=== PATIENT | female | born 1940 | race Caucasian/White ===

== ENCOUNTER → 2022-01-09 | Outpatient (CLI) | payer MEDICARE, OTHER ==
[~2022-01-09] MED LIST: CONEST.625 PO; ESTR25VT PV; MULTIVITAMIN; VITAMIN D
[2022-01-12 12:33] LABS: Stool Occult Bld Immuno 1 Negative (NEGATIVE); Stool Occult Bld Immuno 2 Negative (NEGATIVE)
== END | disposition home or self-care (01) ==
LOC: LAB SHORT 14:58
PROVIDERS: Internal Medicine Gastroenterology
DX: Z09 Encounter for follow-up examination after completed treatment for conditions other than malignant neoplasm (principal); Z86.010 Personal history of colon polyps
CPT/HCPCS: 82274

== ENCOUNTER 2024-05-06 09:48 | Emergency (ER) | payer MEDICARE, OTHER ==
[~2024-05-06] VITALS: Ht 162.6 cm; Wt 52.2 kg
[2024-05-06] MEDS ORDERED: Lactated Ringer's 1,000 ML IV ONE (10:40)
[2024-05-06 10:44] LABS: Source, Urine Clean Catch
[2024-05-06 10:46] LABS: Bilirubin, Urine Neg (Neg); Blood, Urine Neg (Neg); Glucose Qualitative, Urine Neg (Neg); Ketones, Urine Neg (Neg); Leukocyte Esterase, Urine 2+ (Neg); Nitrite, Urine Neg (Neg); Protein, Urine Neg (Neg); Specific Gravity, Urine 1.015 (1.003-1.022); Urobilinogen, Urine NORM (Normal)
[2024-05-06] MEDS ORDERED: ELIQUIS2.5 MG (10:48)
[2024-05-06 11:00] LABS: BASOPHILS ABSOLUTE AUTO 0.03 K/mm3 (0.00-0.23); BASOPHILS PERCENT AUTO 1 % (0-2); EOSINOPHILS ABSOLUTE AUTO 0.15 K/mm3 (0.00-0.68); EOSINOPHILS PERCENT AUTO 3 % (0-6); Hematocrit 43.9 % (33.0-51.0); Hemoglobin 14.6 g/dL (11.5-16.0); IMMATURE GRAN ABSOLUTE AUTO 0.01 K/mm3 (0.00-0.10); IMMATURE GRAN PERCENT AUTO 0 % (0-1); LYMPHOCYTES ABSOLUTE AUTO 0.88 K/mm3 (0.84-5.20); LYMPHOCYTES PERCENT AUTO 19 % (21-46); MONOCYTES ABSOLUTE AUTO 0.57 K/mm3 (0.16-1.47); MONOCYTES PERCENT AUTO 12 % (4-13); Mean Corpuscular HGB 29.5 pg (26.0-34.0); Mean Corpuscular HGB Conc 33.3 g/dL (31.5-36.5); Mean Corpuscular Volume 89 fL (80-100); Mean Platelet Volume 10.8 fL (9.1-12.4); NEUTROPHILS ABSOLUTE AUTO 3.12 K/mm3 (1.96-9.15); NEUTROPHILS PERCENT AUTO 66 % (41-73); Platelet Count 243 K/mm3 (150-400); RDW Standard Deviation 42.2 fL (35.1-46.3); Red Blood Cell Count 4.95 M/mm3 (3.80-5.20); White Blood Cell Count 4.76 K/mm3 (4.00-11.30)
[2024-05-06 11:11] LABS: Albumin, Blood 3.7 g/dL (3.4-5.0); Bilirubin, Total 0.5 mg/dL (0.1-1.0); Bun/Creatinine Ratio 25.4 (12.0-20.0); Calcium, Blood 9.6 mg/dL (8.5-10.1); Creatinine, Blood 0.59 mg/dL (0.40-1.00); Globulin, Blood 3.8 g/dL (2.2-4.0); Magnesium, Blood 2.2 mg/dL (1.6-2.4); Potassium, Blood 3.8 mmol/L (3.5-5.5); Total Protein, Blood 7.5 g/dL (6.4-8.2)
[2024-05-06 11:11] LABS: Appearance, Urine Hazy (Clear); Color, Urine Yellow (P-Yellow)
[2024-05-06 11:12] LABS: Bacteria Rare /hpf; Red Blood Cells, Urine 0-2 /hpf (0-2); Squamous Epithelial Cells Mod /hpf (Few)
[2024-05-06 12:00] VITALS: BP 162/69
[2024-05-06 12:00] LABS: CORONAVIRUS COVID-19 AG Negative (NEGATIVE); INFLUENZA A AG Negative (NEGATIVE); INFLUENZA B AG Negative (NEGATIVE)
== END 2024-05-06 12:28 | disposition home or self-care (01) ==
LOC: ER 09:48
PROVIDERS: Student in an Organized Health Care Education/Training Program
DX: R42 Dizziness and giddiness (principal); Z86.79 Personal history of other diseases of the circulatory system; Z79.01 Long term (current) use of anticoagulants; Z79.899 Other long term (current) drug therapy; Z88.5 Allergy status to narcotic agent; Z88.8 Allergy status to other drugs, medicaments and biological substances
CPT/HCPCS: 80053; 81001; 83735; 84484; 85025; 87086; 87428-QW; 93005; 93010; 96360; 99284-25; J7120

== ENCOUNTER → 2025-02-03 | Outpatient (CLI) | payer MEDICARE, OTHER ==
[~2025-02-03] MED LIST changes: +ELIQUIS2.5 MG
== END ==
LOC: LAB 14:12 → LAB SHORT 14:12
DX: D49.0 Neoplasm of unspecified behavior of digestive system (principal)
CPT/HCPCS: 88305; 88312

== ENCOUNTER 2025-02-24 18:10 | Inpatient (IN) | payer MEDICARE, OTHER ==
[~2025-02-24] VITALS: Ht 162.6 cm; Wt 65.8 kg
[~2025-02-24 18:10] MED LIST changes: -ELIQUIS2.5 MG; +ELIQUIS2.5 MG PO
[2025-02-24 18:29] LABS: BASOPHILS ABSOLUTE AUTO 0.04 K/mm3 (0.00-0.23); BASOPHILS PERCENT AUTO 1 % (0-2); EOSINOPHILS ABSOLUTE AUTO 0.25 K/mm3 (0.00-0.68); EOSINOPHILS PERCENT AUTO 4 % (0-6); Hematocrit 41.5 % (33.0-51.0); Hemoglobin 13.7 g/dL (11.5-16.0); IMMATURE GRAN ABSOLUTE AUTO 0.02 K/mm3 (0.00-0.10); IMMATURE GRAN PERCENT AUTO 0 % (0-1); LYMPHOCYTES ABSOLUTE AUTO 2.07 K/mm3 (0.84-5.20); LYMPHOCYTES PERCENT AUTO 31 % (21-46); MONOCYTES ABSOLUTE AUTO 0.82 K/mm3 (0.16-1.47); MONOCYTES PERCENT AUTO 12 % (4-13); Mean Corpuscular HGB Conc 33.0 g/dL (31.5-36.5); Mean Corpuscular Volume 88 fL (80-100); NEUTROPHILS ABSOLUTE AUTO 3.43 K/mm3 (1.96-9.15); NEUTROPHILS PERCENT AUTO 52 % (41-73); NRBC ABSOLUTE 0.00 K/mm3 (0.00-0.02); NRBC Auto 0.0 /100 WBC (0.0-0.2); Platelet Count 301 K/mm3 (150-400); RDW Coefficient Variation 13.3 % (11.7-14.2); RDW Standard Deviation 43.1 fL (35.1-46.3)
[2025-02-24 18:30] LABS: pH Blood Venous 7.46 (7.34-7.37)
[2025-02-24 18:44] LABS: Prothrombin Time Results 10.2 Sec (9.7-11.5)
[2025-02-24 18:52] LABS: Alanine Aminotransfer (ALT/SGP 24.0 U/L (12-78); Albumin, Blood 3.7 g/dL (3.4-5.0); Albumin/Globulin Ratio 1.0 (0.8-1.8); Anion Gap 7.0 mmol/L (3-11); Aspartate Aminotrans (AST/SGOT 22.0 U/L (12-37); Bilirubin, Total 0.5 mg/dL (0.1-1.0); Blood Urea Nitrogen 12.0 mg/dL (8-24); CO2, Blood 29.0 mmol/L (21-32); Calcium, Blood 9.6 mg/dL (8.5-10.1); Chloride, Blood 104.0 mmol/L (98-108); Creatinine, Blood 0.6 mg/dL (0.40-1.00); Globulin, Blood 3.7 g/dL (2.2-4.0); Glucose, Blood 131.0 mg/dL (70-99); Potassium, Blood 3.2 mmol/L (3.5-5.5); Sodium, Blood 137.0 mmol/L (136-145); Total Protein, Blood 7.4 g/dL (6.4-8.2)
[2025-02-24] MEDS ORDERED: HYDROmorphone HCl/Pf 1MG SYR IV ONE ×2 (19:05→19:40)
[2025-02-24] MEDS ORDERED: HYDROmorphone HCl/Pf 1MG SYR IV PRN (19:55)
[2025-02-24] MEDS ORDERED: LORazepam 2 MG/ML 1ML Injection IV STA (19:57)
[2025-02-24] MEDS ORDERED: Ketorolac Tromethamine 30mg Vial IV ONE (20:00)
[2025-02-24] MEDS ORDERED: Ondansetron HCl 2 MG / ML 2ML Vial IV PRN (20:25)
[2025-02-24] MEDS ORDERED: Metoclopramide HCl 5MG / ML 2ML Vial IV PRN (20:25)
[2025-02-24] MEDS ORDERED: FentaNYL Citrate 50 MCG/ML 2 ML Injection IV PRN (20:30)
[2025-02-24] MEDS ORDERED: FLU VACC TS2025(65UP)/MF59C/PF 45 MCG/0.5 ML SYRINGE IM SCH (20:30)
[2025-02-24] MEDS ORDERED: LORazepam 2 MG/ML 1ML Injection IV PRN (20:30)
[2025-02-24] MEDS ORDERED: NS 1,000 ML IV SCH (20:30)
[2025-02-24] MEDS ORDERED: Ketorolac Tromethamine 15mg Vial IV PRN (20:45)
[2025-02-24 21:02] LABS: Thyroid Stimulating Hormone 3.69 uIU/mL (0.360-4.800)
[2025-02-24] MEDS ORDERED: HYDROmorphone HCl/Pf 1MG SYR ONE (22:27)
[2025-02-24 22:46] VITALS: BP 123/62
--- NOTE | 2025-02-24 23:14 | NUR ---
ARRIVAL TO SURGICAL UNIT ROOM 213 AT 2238. PT ARRIVED TO ROOM VIA HOSPITAL BED. TRANSFERED WITH SLIDER SHEET. PT A/O X4. VSS. CONTINUOUS BIOX IN PLACE. PT ON 2.5 L O2 VIA N/C UPON ARRIVAL. PT HAS A GOODMAN CATHETER PATENT AND DRAINING YELLOW URINE. PT ORIENTED TO ROOM, CALL LIGHT, AND UNIT POLICIES.
[2025-02-25 00:13] VITALS: BP 119/58
[2025-02-25] MEDS ORDERED: VITAMIN D33000 UNIT PO (01:02)
[2025-02-25] MEDS ORDERED: MULVITA PO (01:03)
[2025-02-25 04:34] LABS: Hematocrit 36.7 % (33.0-51.0); Hemoglobin 11.8 g/dL (11.5-16.0); Mean Corpuscular HGB Conc 32.2 g/dL (31.5-36.5); Mean Corpuscular Volume 90 fL (80-100); NRBC ABSOLUTE 0.00 K/mm3 (0.00-0.02); NRBC Auto 0.0 /100 WBC (0.0-0.2); Platelet Count 209 K/mm3 (150-400); RDW Coefficient Variation 13.3 % (11.7-14.2); RDW Standard Deviation 44.1 fL (35.1-46.3)
[2025-02-25 05:02] LABS: Anion Gap 8.0 mmol/L (3-11); Blood Urea Nitrogen 13.0 mg/dL (8-24); CO2, Blood 28.0 mmol/L (21-32); Calcium, Blood 9.0 mg/dL (8.5-10.1); Chloride, Blood 107.0 mmol/L (98-108); Creatinine, Blood 0.53 mg/dL (0.40-1.00); Glucose, Blood 127.0 mg/dL (70-99); Magnesium, Blood 2.2 mg/dL (1.6-2.4); Potassium, Blood 4.7 mmol/L (3.5-5.5); Sodium, Blood 138.0 mmol/L (136-145)
[2025-02-25 05:11] VITALS: BP 127/62
--- NOTE | 2025-02-25 05:49 | NUR ---
SHIFT SUMMARY NOC. PT ADMIT FOR RIGHT FEMUR FX AFTER GLF. PT WAS DROWSY UPON ARRIVAL BUT STILL A/OX4. PT IS MORE ALERT THIS MORNING. PT MEDICATED FOR PAIN X1 WITH TORADOL, PT WANTS TO AVOID NARCOTICS. PT'S GOODMAN IS BELOW BLADDER LEVEL AND DRAINING TO GRAVITY. PT TOLERATING DIET, PLAN IS FOR DELAYED SURGERY D/T BLOOD THINNER ELIQUIS AT BASELINE. PT ABLE TO WEAN OFF O2 N/C AND IS NOW ON RA. CONT BIOX IN PLACE FOR MONITORING. PT MAKES NEEDS KNOWN, CALL LIGHT IN REACH.
[2025-02-25 07:57] VITALS: BP 118/58
[2025-02-25] MEDS ORDERED: Polyethylene Glycol 3350 17 gm PO PRN (08:05)
--- NOTE | 2025-02-25 09:42 | NUR ---
UPDATE FAMILY NOTIFIED DUCT INSTALLER OF CHANGE IN CONDITION. DUCT INSTALLER & CLINICAL COORDINATOR AT BEDSIDE FOR PROUNCEMENT, SEE CHARTING. MD BLAS NOTIFIED, PASTORAL CARE AT BEDSIDE WITH FAMILY.
--- NOTE | 2025-02-25 09:57 | NUR ---
"Spiritual Care Visit | Pt. Request Pt. is awake in bed. Spouse is at bedside when they welcomed my visit. Pt. displayed evidence of being somnolent, so I kept my visit short. Prayed with the Pt. Both Pt. and Spouse verbalized gratitude and requested this binding cutter synthetic cloth contact their hat conditioner."
[2025-02-25 11:51] VITALS: BP 128/57
[2025-02-25] MEDS ORDERED: HYDROmorphone HCl/Pf 1MG SYR IV PRN (12:25)
[2025-02-25 15:49] VITALS: BP 113/56
--- NOTE | 2025-02-25 16:31 | NUR ---
SHIFT SUMMARY ADMITTED ON 02/24 FOR R FEMUR FRACTURE FOLLOWING FALL. A&O x4, VSS, HRR, LUNGS CLEAR. ON TELE - SINUS IN 60'S PER EXTRACTOR TENDER RAW STOCK SHAHRZAD, NO EVENTS TODAY. ON CONTINOUS BIOX w/SATS >93%. PAIN w/MOVEMENT, CONTROLLED WELL PER EMAR. TOLERATING REGULAR DIET WELL. GOODMAN CATH IN PLACE DRAINING CLEAR YELLOW URINE TO GRAVITY. PLAN FOR SURGERY TOMORROW, NPO @ 0000. CURRENTLY RESTING IN BED w/CALL LIGHT WITHIN REACH.
[2025-02-25 20:13] VITALS: BP 123/55
[2025-02-25] MEDS ORDERED: Docusate Sodium/Senna 1 Tab PO SCH (21:00)
[2025-02-26] VITALS (16 sets, daily range): BP systolic 98–142; BP diastolic 47–68
[2025-02-26] MEDS ORDERED: Tranexamic Acid 100 ML IV SCH ×2 (00:01→07:00)
[2025-02-26] MEDS ORDERED: CeFAZolin Sodium 2,000 MG in NS 100 ML IV SCH ×2 (00:01→18:00)
[2025-02-26 04:06] LABS: Hematocrit 33.4 % (33.0-51.0); Hemoglobin 10.7 g/dL (11.5-16.0); Mean Corpuscular HGB Conc 32.0 g/dL (31.5-36.5); Mean Corpuscular Volume 90 fL (80-100); NRBC ABSOLUTE 0.00 K/mm3 (0.00-0.02); NRBC Auto 0.0 /100 WBC (0.0-0.2); Platelet Count 184 K/mm3 (150-400); RDW Coefficient Variation 13.5 % (11.7-14.2); RDW Standard Deviation 45.1 fL (35.1-46.3)
--- NOTE | 2025-02-26 04:25 | NUR ---
SHIFT SUMMARY PLAN IS FOR OR TODAY FOR R HIP FRACTURE. PAIN MANAGED PER EMAR. PT HAS BEEN NPO SINCE MIDNIGHT. VITALS STABLE. PLAN OF CARE REMAINS UNCHANGED. BED IN LOWEST POSITION, CALL LIGHT WITHIN REACH.
[2025-02-26 04:28] LABS: Albumin, Blood 2.8 g/dL (3.4-5.0); Anion Gap 5 mmol/L (3-11); Blood Urea Nitrogen 8 mg/dL (8-24); CO2, Blood 28 mmol/L (21-32); Calcium, Blood 8.1 mg/dL (8.5-10.1); Chloride, Blood 107 mmol/L (98-108); Creatinine, Blood 0.56 mg/dL (0.40-1.00); Glucose, Blood 101 mg/dL (70-99); Magnesium, Blood 2.0 mg/dL (1.6-2.4); Phosphorus, Blood 2.8 mg/dL (2.5-4.9); Potassium, Blood 4.2 mmol/L (3.5-5.5); Sodium, Blood 136 mmol/L (136-145)
[2025-02-26] MEDS ORDERED: Bupivacaine 0.5% W/EPI 1:200000 SDV 30 ML Vial ONE (07:30)
--- NOTE | 2025-02-26 08:42 | NUR ---
PT TO OR AT ABOUT 0820
[2025-02-26] MEDS ORDERED: Dexmedetomidine HCL 200 MCG / 2 ML ONE (09:11)
[2025-02-26] MEDS ORDERED: Ondansetron HCl 2 MG / ML 2ML Vial ONE (09:14)
[2025-02-26] MEDS ORDERED: Dexamethasone Sod Phos 10 MG/ML 1ML VIAL ONE (09:14)
[2025-02-26] MEDS ORDERED: FentaNYL Citrate 50 MCG/ML 2 ML Injection ONE (09:17)
[2025-02-26] MEDS ORDERED: FLU VACC TS2025(65UP)/MF59C/PF 45 MCG/0.5 ML SYRINGE IM SCH (09:20)
[2025-02-26] MEDS ORDERED: HYDROmorphone HCl/Pf 1MG SYR IV PRN ×2 (09:20→10:20)
[2025-02-26] MEDS ORDERED: Magnesium Hydroxide Conc 10 ML UDC PO PRN (09:20)
[2025-02-26] MEDS ORDERED: Naloxone HCl 0.4MG / ML 1ML Vial IV PRN (09:25)
[2025-02-26] MEDS ORDERED: Ondansetron HCl 2 MG / ML 2ML Vial IV PRN ×2 (09:25→10:20)
--- NOTE | 2025-02-26 09:40 | NUR ---
02/26/25 0940 Myriam Patrick PRIOR TO ARRIVING IN THE OR, PATIENT ALSO RECEIVED 1GM IV VANCO.
[2025-02-26] MEDS ORDERED: Sugammadex Sodium 200 MG/2ML SDV (100 MG/ML) ONE (10:11)
[2025-02-26] MEDS ORDERED: FentaNYL Citrate 50 MCG/ML 2 ML Injection IV PRN ×3 (10:20→10:25)
[2025-02-26] MEDS ORDERED: ePHEDrine Sulfate 50 MG/ML 1ML Injection IV PRN (10:20)
--- NOTE | 2025-02-26 12:33 | NUR ---
POST OP: REPORT RECEIVED FROM PACU, PT TO UNIT AT 1120. ORIENTED, A LITTLE DROWSY BUT FOLLOWS COMMANDS. SURGICAL SITE WNL, SENSATION INTACT. PT REPORTS PAIN, MEDICATED PER EMAR. GOODMAN DRAINING, CALL LIGHT IN REACH
--- NOTE | 2025-02-26 13:34 | NUR ---
ASSUMPTION OF CARE ASSUMED CARE OF PATIENT AT 1300, OBTIANED REPORT FROM PRIOR DAY RN, PT RESTING IN BED COMFORTABLY, DECIDED NOT TO WAKE PATIENT AT THIS TIME.
--- NOTE | 2025-02-26 18:45 | NUR ---
SHIFT SUMMARY POD0 R HIP NAILING, BULKY DRESSING IN PLACE, A/OX4, VSS, TOLERATING PO, PAIN MANAGED PER EMAR, PT WORKED WITH THERAPY AND WAS ABLE TO GET UP TO THE CHAIR FOR DINNER. NO ACUTE EVENTS, CALL LIGHT IN REACH.
[2025-02-27 00:47] VITALS: BP 120/57
[2025-02-27 04:21] VITALS: BP 130/57
--- NOTE | 2025-02-27 04:58 | NUR ---
SHIFT SUMMARY: PT REQUIRED PRN MEDICATION FOR PAIN R/T SURGERY TWICE THIS SHIFT. PATIENT DID NOT LIKE THE SIDE EFFECT OF THE IV DILAUDID AND WISHES TO NOT RECIEVE THAT MEDICATION AGAIN. IVF HAVE BEEN RUNNING AT 75 D/T PT HAVING POOR PO INTAKE. VITALS STABLE. NO ACUTE EVENTS. PT STAND WITH ASSIST, GAIT BELT AND WALKER TO TRANSFER TO BED FROM RECLINER. BED IN LOW POSITION, CALL SESAY AND PERSONAL BELONGINGS WITHIN REACH.
[2025-02-27 06:06] LABS: BASOPHILS ABSOLUTE AUTO 0.02 K/mm3 (0.00-0.23); BASOPHILS PERCENT AUTO 0 % (0-2); EOSINOPHILS ABSOLUTE AUTO 0.11 K/mm3 (0.00-0.68); EOSINOPHILS PERCENT AUTO 2 % (0-6); Hematocrit 30.3 % (33.0-51.0); Hemoglobin 9.8 g/dL (11.5-16.0); IMMATURE GRAN ABSOLUTE AUTO 0.02 K/mm3 (0.00-0.10); IMMATURE GRAN PERCENT AUTO 0 % (0-1); LYMPHOCYTES ABSOLUTE AUTO 0.92 K/mm3 (0.84-5.20); LYMPHOCYTES PERCENT AUTO 15 % (21-46); MONOCYTES ABSOLUTE AUTO 0.68 K/mm3 (0.16-1.47); MONOCYTES PERCENT AUTO 11 % (4-13); Mean Corpuscular HGB Conc 32.3 g/dL (31.5-36.5); Mean Corpuscular Volume 90 fL (80-100); NEUTROPHILS ABSOLUTE AUTO 4.49 K/mm3 (1.96-9.15); NEUTROPHILS PERCENT AUTO 72 % (41-73); NRBC ABSOLUTE 0.00 K/mm3 (0.00-0.02); NRBC Auto 0.0 /100 WBC (0.0-0.2); Platelet Count 188 K/mm3 (150-400); RDW Coefficient Variation 13.2 % (11.7-14.2); RDW Standard Deviation 44.2 fL (35.1-46.3)
[2025-02-27 06:40] LABS: Anion Gap 8.0 mmol/L (3-11); Blood Urea Nitrogen 10.0 mg/dL (8-24); CO2, Blood 26.0 mmol/L (21-32); Calcium, Blood 8.4 mg/dL (8.5-10.1); Chloride, Blood 108.0 mmol/L (98-108); Creatinine, Blood 0.53 mg/dL (0.40-1.00); Glucose, Blood 103.0 mg/dL (70-99); Magnesium, Blood 2.0 mg/dL (1.6-2.4); Potassium, Blood 4.0 mmol/L (3.5-5.5); Sodium, Blood 138.0 mmol/L (136-145)
[2025-02-27 07:24] VITALS: BP 127/53
--- NOTE | 2025-02-27 08:34 | NUR ---
PATIENT UP TO CHAIR FOR BREAKFAST.
--- NOTE | 2025-02-27 10:15 | NUR ---
THERAPY: PT IN ROOM TO WORK WITH PATIENT. PATIENT HAS BEEN UP IN CHAIR THIS AM. MEDICATED FOR PAIN.
[2025-02-27 10:51] LABS: Ferritin, Serum 112.0 ng/mL (8-252); Total Iron Binding Capacity 209.0 ug/dL (250-450)
[2025-02-27] MEDS ORDERED: Enoxaparin 30 MG/0.3 ML SYR SC SCH (12:00)
--- NOTE | 2025-02-27 12:11 | NUR ---
DR BRIDGES: HOSP AND ORTHO IN TO SEE PATIENT. HIP DRESSING CHANGED PER ORTHO. TELE DC'D PER ORDERS. MAXINE OLMEDO'D. PT AMBULATED 1 ASSIST WITH THIS RN.
[2025-02-27 14:39] VITALS: BP 111/46
--- NOTE | 2025-02-27 18:17 | NUR ---
PT HAS BEEN STABLE THIS SHIFT. PT ABLE TO WORK WELL WITH THERAPY AND STAFF TO MOBILIZE TO CHAIR AND TO AMBULATE. PT TTWB. RECOMMENDATION OF HOME HEALTH AT [place]. PT PAIN CONTROLLED WITH TRAMADOL. TOLERATING DIET. EVERARDO MISHRA. MAXINE OLMEDO'[place] THIS AM, PT VOIDING WELL. DRESSING TO RIGHT HIP CDI. CHANGED THIS SHIFT BY ORTHO DOCTOR. PT STARTED ON KEFLEX FOR INFECTION PREVENTION. PT USES CALL LIGHT APPROPRIATELY NEEDED.
[2025-02-27 19:33] VITALS: BP 131/44
[2025-02-28] VITALS (7 sets, daily range): BP systolic 129–154; BP diastolic 47–64
--- NOTE | 2025-02-28 07:27 | NUR ---
SHIFT SUMMARY NOC. PT POD 2 FOR RIGHT HIP NAILING. AQUACEL IS C/D/I. PT MEDICATED FOR PAIN WITH REPORTED RELIEF. PT VOIDING URINE, TOLERATING PO, AND HAD A BM THIS SHIFT. MAKES NEEDS KNOWN, CALL LIGHT IN REACH.
[2025-02-28] MEDS ORDERED: Cholecalciferol 1000 Unit Tablet (=25MCG) PO SCH (09:00)
--- NOTE | 2025-02-28 18:03 | NUR ---
SUMMARY ASSUMED CARE OF PT @0700. VSS. AXO4. MEDS PER EMAR BEING ADMINISTERED Q4P FOR PAIN - PT HAS AMBULATED MULTIPLE TIMES TODAY WELL WHILE MAINTAINING TTAT WB STATUS. 2 AQUACEL DRESSINGS CDI. ON RA. VOIDING WELL. HAS BEEN IN CHAIR OR AMBULATING OFF AND ON T/O SHIFT. PLEASANT AND COOPERATIVE BUT PT STATES APREHENSION ABOUT DISCHARGING. USING CALL LIGHT APPROPRIATELY.
[2025-03-01 03:09] VITALS: BP 131/59
--- NOTE | 2025-03-01 03:24 | NUR ---
SHIFT SUMMARY PT HAS RESTED T/O THE NIGHT. PT HAS BEEN UP AND AMBULATING 1 ASSIST W FWW. ADHERING TO WB RESTRICTIONS. SURGICAL SITE WNL. PAIN MANAGED PER EMAR. VITALS STABLE. PLAN OF CARE REMAINS UNCHANGED. BED IN LOWEST POSITION, CALL LIGHT WITHIN REACH.
[2025-03-01 06:11] VITALS: BP 114/49
--- NOTE | 2025-03-01 07:03 | NUR ---
PT HAD SOME DIZZINESS THIS AM WHEN STANDING UP FROM CHAIR. PT REMAINED A/OX4 AND COHERENT. VITALS OBTAINED AND WERE STABLE. PT REPORTS THAT MAYBE SHE WAS A LITTLE DEHYDRATED. PT REQUESTED MORE PO FLUIDS, CRANBERRY JUICE AND WATER WERE GIVEN. PT IS NOW RESTING IN RECLINER STATES THAT DIZZINESS IS NOW RESOLVED.
[2025-03-01 07:08] VITALS: BP 129/44
[2025-03-01 07:09] VITALS: BP 128/55
[2025-03-01 15:20] VITALS: BP 150/53
--- NOTE | 2025-03-01 15:58 | NUR ---
Pt. is awake and sitting in her recliner with a fresh ice pack on her hip when she welcomes my visit. Pt. is pleasant. Facilitated an update as this market analysis director had visited prior to the Pts. hip surgery. Considered matters of bertha, belief and her love for her present bahai. Pt. displayed evidence of being engaged and aware. Prayed with the Pt. Pt. verbalized gratitude for the spiritual care visit.
--- NOTE | 2025-03-01 17:51 | NUR ---
SHIFT SUMMARY POD 3 R HIP NAILING. A&O x4, VSS. TOLERATING REGULAR DIET WELL. R HIP w/2 AQUACEL DRESSINGS, NO DRAINAGE, C/D/I. WORKED w/OT TODAY, AMBULATED IN HALLWAY & ROOM. ABLE TO MAINTAIN TOE-TOUCH WB STATUS w/AMBULATION & USE OF WALKER. MINIMAL PAIN TODAY CONTROLLED WELL PER EMAR. PLAN TO DC HOME TOMORROW w/HOME HEALTH. CURRENTLY RESTING IN BED w/CALL LIGHT WITHIN REACH.
[2025-03-01 20:37] VITALS: BP 121/54
[2025-03-02 03:55] VITALS: BP 137/56
--- NOTE | 2025-03-02 04:33 | NUR ---
SHIFT SUMMARY NO ACUTE CHANGES TONIGHT. PT IS POD 5 S/P RIGHT HIP PINNING. AQUACEL DRESSING TO RIGHT HIP CDI, BRUISING NOTED AROUND DRESSING/THIGH. PAIN MANAGED PER EMAR. HARESH PO, DENIES N/V. AMB WITH MIN SBA AND FWW/GB. IS VOIDING. REPORTS BM'S DURING DAY. PLAN FOR POTENTIAL D/C HOME TODAY. PT CURRENTLY RESTING IN BED WITH RESP EVEN/UNLABORED AND EYES CLOSED. WILL GIVE REPORT TO ONCOMING RN.
[2025-03-02 07:15] VITALS: BP 116/61
--- NOTE | 2025-03-02 11:41 | NUR ---
Pt. is awake and sitting on the chair. Pt. verbalizes that she is "going home" later today. Listen with interest and empathy. Pt. added that she was not interested in going to a rehab facility. Considered matters of bertha and belief. Pt. displayed evidence of having been encouraged and was interested in her pending discharge. Prayed with the Pt. Pt. verbalized gratitude for the spiritual care visit.
[2025-03-02 13:32] VITALS: BP 127/62
[2025-03-02] MEDS ORDERED: CEPH500 PO (14:39)
[2025-03-02] MEDS ORDERED: TRAM50 PO (14:40)
[2025-03-02] MEDS ORDERED: SENN187 PO (14:42)
--- NOTE | 2025-03-02 15:35 | NUR ---
SHIFT SUMMARY POD 5 R HIP NAILING. A&O x4, VSS. R HIP w/2 SMALL AQUACEL DRESSINGS, C/D/I. VOIDING. WORKED w/THERAPY, AMBULATED IN HALLWAY & ROOM. ABLE TO MAINTAIN TOE TOUCH WB STATUS w/WALKER. TOLERATING REGULAR DIET WELL. MINIMAL PAIN - CONTROLLED WELL PER EMAR. DISCHARGE INSTRUCTIONS REVIEWED & GIVEN. ESCORTED OUT VIA WC.
== END 2025-03-02 15:27 | disposition home health service (06) | DRG 482 ==
LOC: ER 18:10 → ERHOLD 20:23 → SURS 20:23
PROVIDERS: Internal Medicine; Nurse Practitioner Acute Care; Orthopaedic Surgery; Student in an Organized Health Care Education/Training Program; ADMIT Internal Medicine
PROC: 0QS634Z Reposition Right Upper Femur with Internal Fixation Device, Percutaneous Approach (ICD-10-PCS; principal; 2025-02-26 07:30)
DX: S72.141A Displaced intertrochanteric fracture of right femur, initial encounter for closed fracture (principal); I48.0 Paroxysmal atrial fibrillation; F17.210 Nicotine dependence, cigarettes, uncomplicated; E87.6 Hypokalemia; M19.90 Unspecified osteoarthritis, unspecified site; E55.9 Vitamin D deficiency, unspecified; K59.00 Constipation, unspecified; M81.0 Age-related osteoporosis without current pathological fracture; D64.9 Anemia, unspecified; Z98.890 Other specified postprocedural states; Z90.49 Acquired absence of other specified parts of digestive tract; Z79.01 Long term (current) use of anticoagulants; Z79.899 Other long term (current) drug therapy; Z88.5 Allergy status to narcotic agent; Z88.8 Allergy status to other drugs, medicaments and biological substances; W01.0XXA Fall on same level from slipping, tripping and stumbling without subsequent striking against object, initial encounter; Y92.009 Unspecified place in unspecified non-institutional (private) residence as the place of occurrence of the external cause
CPT/HCPCS: 36415; 51702; 70450; 71045; 72125; 72170; 72192; 76377; 80048; 80053; 80069; 82306; 82728; 82803; 83540; 83550; 83735; 83880; 84439; 84443; 85025; 85027; 85610; 85730; 86850; 86900; 86901; 93005; 93010; 94760; 94762; 96374; 96375; 96376; 97110; 97110-CQ; 97116; 97116-CQ; 97161; 97165; 97530; 97535; 99285-25; A9270; C1713; C1769; G0378; J0690; J1100; J1171; J1650; J1885; J2060; J2405; J2704; J3010; J3373; J3480; J7030; J7050

== ENCOUNTER → 2025-03-29 | Outpatient (CLI) | payer MEDICARE, OTHER ==
[~2025-03-29] MED LIST changes: +CEPH500 PO; +MULVITA PO; +SENN187 PO; +TRAM50 PO; +VITAMIN D33000 UNIT PO
[2025-03-29 10:07] LABS: WBC Count, Synovial Fluid 17120 /mm3 (0-180)
[2025-03-29 10:22] LABS: Appearance, Synovial Fluid Cloudy (Clear); Color, Synovial Fluid Pale Yellow (None-P Yel); RBC Count, Synovial Fluid 237 /mm3 (0-0)
[2025-03-29 10:46] LABS: Monocytes/Macrophages, Synovia 6 % (0-65); Neutrophils, Synovial Fluid 94 % (0-24)
== END | disposition home or self-care (01) ==
LOC: LAB 09:06 → LAB SHORT 09:06
PROVIDERS: Orthopaedic Surgery
DX: M25.461 Effusion, right knee (principal)
CPT/HCPCS: 87070; 87075; 87205; 89051; 89060

== ENCOUNTER → 2025-04-14 | Outpatient (CLI) | payer MEDICARE, OTHER | LOC: LAB 17:12 → LAB SHORT 17:12 | DX: N39.498 Other specified urinary incontinence (principal) | CPT/HCPCS: 87077; 87086; 87186 ==

== ENCOUNTER → 2025-04-22 | Outpatient (CLI) | payer MEDICARE, OTHER ==
[2025-04-22 15:22] LABS: Campylobacter Sp Not Detected (NOT DETECT); E. Coli O157 Not Detected (NOT DETECT); Enteroaggregative E. coli-EAEC Not Detected (NOT DETECT); Enteropathogenic E. coli-EPEC Not Detected (NOT DETECT); Enterotoxigenic E. coli-ETEC Not Detected (NOT DETECT); Salmonella Sp Not Detected (NOT DETECT); Shiga Toxin-prod E. coli-STEC Not Detected (NOT DETECT); Shigella/Enteroin E. coli-EIEC Not Detected (NOT DETECT); Vibrio Sp Not Detected (NOT DETECT)
== END | disposition home or self-care (01) ==
LOC: LAB 07:05 → LAB SHORT 07:05
PROVIDERS: Family Medicine
DX: R19.7 Diarrhea, unspecified (principal)
CPT/HCPCS: 36415; 80053; 87015; 87045; 87046; 87205; 87338; 87507; 87899